=== PATIENT | female | born 1950 | race Caucasian/White ===

== ENCOUNTER 2017-04-19 12:08 | Emergency (ER) | payer OTHER ==
[~2017-04-19] VITALS: Ht 165.1 cm; Wt 95.3 kg
[2017-04-19 12:09] VITALS: BP 169/96
[2017-04-19] MEDS ORDERED: OMEPRAZOLE 20 M20 M1 PO (12:30)
[2017-04-19] MEDS ORDERED: ALEVE220 MG PO (12:31)
== END 2017-04-19 13:23 | disposition home or self-care (01) ==
LOC: ER 12:08
DX: H11.31 Conjunctival hemorrhage, right eye (principal)